=== PATIENT | female | born 1955 | race Two or more races ===

== ENCOUNTER 2016-10-14 17:57 | Inpatient (IN) | payer MEDICARE, OTHER ==
[~2016-10-14] VITALS: Ht 139.7 cm; Wt 55.8 kg
[2016-10-14 21:30] VITALS: BP 117/71
[2016-10-15] VITALS: BP 108/60
[2016-10-15] MEDS ORDERED: Norco 5mg/325mg tab ORAL PRN (00:30)
[2016-10-15] MEDS ORDERED: ABACAVIR300 MG ORAL (00:59)
[2016-10-15] MEDS ORDERED: JANUVIA50 MG ORAL (01:12)
[2016-10-15] MEDS ORDERED: COLACE100 MG ORAL (01:12)
[2016-10-15] MEDS ORDERED: FERROUS SULFAT325 MG ORAL (01:12)
[2016-10-15] MEDS ORDERED: LORAZEPAM2 MG/1 M4 ORAL (01:12)
[2016-10-15] MEDS ORDERED: CALCIUM + VITA1 EAC1 PO (01:12)
[2016-10-15] MEDS ORDERED: TIVICAY50 MG ORAL (01:12)
[2016-10-15] MEDS ORDERED: ZYPREXA2.5 MG ORAL (01:12)
[2016-10-15] MEDS ORDERED: LORAZEPAM2 MG ORAL (01:19)
[2016-10-15] MEDS ORDERED: LORazepam 0.5mg tab ORAL PRN (01:45)
[2016-10-15] MEDS: NS w/KCl 20mEq 1,000 ML IV SCH ×2 (02:14→16:29)
[2016-10-15 04:00] VITALS: BP 117/70
[2016-10-15] MEDS: Morphine Sulfate 2mg/ml Inj IVP PRN ×3 (05:11→19:06)
[2016-10-15] MEDS: NovoLOG Insulin Flexpen SUBQ SCH ×4 (06:25→22:24)
[2016-10-15 06:55] LABS: ALBUMIN/GLOBULIN RATIO 0.9 (1.0-2.7); CALCIUM 7.1 mg/dL (8.6-10.2); GLOMERULAR FILTRATION RATE 56.8 mL/min (>60); MAGNESIUM 1.3 mg/dL (1.7-2.5); MEAN CORPUSCULAR HEMOGLOBIN 31.6 PG (27.0-31.0); MEAN CORPUSCULAR HGB CONC 33.7 G/DL (32.0-36.0); MEAN CORPUSCULAR VOLUME 94 FL (80-99); PHOSPHORUS 1.4 mg/dL (2.5-4.8); PLATELET COUNT 68 K/UL (150-450); POTASSIUM 3.6 mEQ/L (3.4-4.9); RED BLOOD COUNT 3.25 M/UL (4.20-5.40); RED CELL DISTRIBUTION WIDTH 14.4 % (11.6-14.8); TOTAL PROTEIN 6.3 g/dL (6.6-8.7); WHITE BLOOD COUNT 4.5 K/UL (4.8-10.8)
[2016-10-15 07:32] LABS: BASOPHILS % (MANUAL) 1 % (0-2); EOSINOPHILS % (MANUAL) 4 % (0-3); LYMPHOCYTES % (MANUAL) 15 % (20-45); NEUTROPHILS % (MANUAL) 73 % (45-75); TOTAL CELLS COUNTED 100
[2016-10-15 07:33] LABS: ANISOCYTOSIS 1+; BAND NEUTROPHILS % (MANUAL) 0 % (0-8); PLATELET ESTIMATE DECREASED; PLATELET MORPHOLOGY NORMAL
[2016-10-15 07:34] VITALS: BP 127/79
[2016-10-15 07:34] LABS: HYPOCHROMASIA 1+
[2016-10-15] MEDS: Docusate 100mg cap ORAL SCH ×2 (08:14→17:54)
[2016-10-15] MEDS: metroNIDAZOLE 500mg 100 ML IVPB SCH ×3 (08:14→23:31)
[2016-10-15] MEDS ORDERED: Heparin 5000 units/ml inj SUBQ SCH (09:00)
[2016-10-15 11:35] VITALS: BP 131/77
--- NOTE | 2016-10-15 14:53 | Consultation ---
History of Present Illness General Date patient seen: Oct 15, 2016 Chief Complaint: abdominal pain/ nausea Reason for Consultation: inpatient management Present Illness HPI 61 year old female with hx of DM, HIV, presented to [facility] with CC of abdominal pain, A CT of abdomen showed that she has diverticulitis. She is transferred to [facility] for furhter work up. Her pain is controlled now. She has some nausea and c/o sore throat. Allergies: Coded Allergies: ASPIRIN (Unverified Allergy, Unknown, Rash, 10/14/16) PENICILLINS (Unverified Allergy, Unknown, Rash, 10/14/16) Medication History Scheduled Docusate Sodium* (Colace*), 100 MG ORAL TWICE A DAY, (Reported) Docusate Sodium* (Colace*), 100 MG ORAL TWICE A DAY, (Reported) Dolutegravir Sodium (Tivicay), 50 MG ORAL DAILY, (Reported) Ferrous Sulfate* (Ferrous Sulfate*), 325 MG ORAL DAILY, (Reported) Lorazepam* (Lorazepam*), 2 MG ORAL BEDTIME, (Reported) Olanzapine* (Zyprexa*), 2.5 MG ORAL BEDTIME, (Reported) Sitagliptin (Januvia), 50 MG ORAL DAILY, (Reported) Scheduled PRN Abacavir Sulfate* (Abacavir*), 300 MG ORAL TWICE A DAY PRN for HIV, (Reported) Miscellaneous Medications Calcium Carbonate/Vitamin D3 (Calcium + Vitamin D Tablet), 1 EACH PO, (Reported) Discontinued Medications Lorazepam (Lorazepam), 2 MG ORAL BEDTIME, (Reported) Discontinued Reason: Medication dose changed Patient History Healthcare decision maker N/A Resuscitation status Full Code Advanced Directive on File Past Medical/Surgical History Past Medical/Surgical History: (1) HIV disease (2) Diabetes Review of Systems All Other Systems: negative except mentioned in HPI Physical Exam General Appearance: WD/WN Lines, tubes and drains: peripheral HEENT: normocephalic, atraumatic Neck: non-tender, normal alignment Respiratory/Chest: chest wall non-tender, lungs clear Cardiovascular/Chest: normal peripheral pulses, normal rate Abdomen: normal bowel sounds, non tender Genitourinary/Rectal: normal genital exam Extremities: normal range of motion Last 24 Hour Vital Signs Date Time Temp Pulse Resp B/P Pulse Ox O2 Delivery O2 Flow Rate FiO2 10/15/16 11:35 98.4 84 15 131/77 100 Room Air 10/15/16 07:34 98.2 92 15 127/79 99 Room Air 10/15/16 04:00 97.7 99 20 117/70 96 Room Air 10/15/16 00:00 97.7 82 20 108/60 98 Room Air 10/14/16 21:30 98.1 92 20 117/71 99 Room Air Intake and Output 10/14/16 10/15/16 19:00 07:00 Intake Total 300 ml Balance 300 ml Intake IV Total 300 ml # Voids 5 # Bowel Movements 1 Laboratory Tests Test 10/15/16 05:55 White Blood Count 4.5 K/UL (4.8-10.8) L Red Blood Count 3.25 M/UL (4.20-5.40) L Hemoglobin 10.3 G/DL (12.0-16.0) L Hematocrit 30.5 % (37.0-47.0) L Mean Corpuscular Volume 94 FL (80-99) Mean Corpuscular Hemoglobin 31.6 PG (27.0-31.0) H Mean Corpuscular Hemoglobin Concent 33.7 G/DL (32.0-36.0) Red Cell Distribution Width 14.4 % (11.6-14.8) Platelet Count 68 K/UL (150-450) L Mean Platelet Volume 8.0 FL (6.5-10.1) Neutrophils (%) (Auto) % (45.0-75.0) Lymphocytes (%) (Auto) % (20.0-45.0) Monocytes (%) (Auto) % (1.0-10.0) Eosinophils (%) (Auto) % (0.0-3.0) Basophils (%) (Auto) % (0.0-2.0) Differential Total Cells Counted 100 Neutrophils % (Manual) 73 % (45-75) Lymphocytes % (Manual) 15 % (20-45) L Monocytes % (Manual) 7 % (1-10) Eosinophils % (Manual) 4 % (0-3) H Basophils % (Manual) 1 % (0-2) Band Neutrophils 0 % (0-8) Platelet Estimate Decreased L Platelet Morphology Normal Hypochromasia 1+ Poikilocytosis Anisocytosis 1+ Sodium Level 141 mEQ/L (135-145) Potassium Level 3.6 mEQ/L (3.4-4.9) Chloride Level 108 mEQ/L (98-107) H Carbon Dioxide Level 20 mEQ/L (20-30) Anion Gap 13 (5-15) Blood Urea Nitrogen 12 mg/dL (7-23) Creatinine 1.0 mg/dL (0.5-0.9) H Estimat Glomerular Filtration Rate 56.8 mL/min (>60) Glucose Level 136 mg/dL (74-106) H Calcium Level 7.1 mg/dL (8.6-10.2) L Phosphorus Level 1.4 mg/dL (2.5-4.8) L Magnesium Level 1.3 mg/dL (1.7-2.5) L Total Bilirubin 0.6 mg/dL (0.0-1.2) Aspartate Amino Transf (AST/SGOT) 33 U/L (5-40) Alanine Aminotransferase (ALT/SGPT) 18 U/L (3-33) Alkaline Phosphatase 159 U/L (35-104) H Total Protein 6.3 g/dL (6.6-8.7) L Albumin 3.0 g/dL (3.5-5.2) L Globulin 3.3 g/dL Albumin/Globulin Ratio 0.9 (1.0-2.7) L Height (Feet): 4 Height (Inches): 7.00 Weight (Pounds): 123 Medications Current Medications Medications (Trade) Dose Ordered Sig/Josie Route PRN Reason Start Time Stop Time Status Last Admin Dose Admin Acetaminophen 650 mg 650 mg Q6H PRN ORAL Mild Pain/Temp > 100.5 10/15/16 00:30 11/14/16 00:29 Acetaminophen/ Hydrocodone Bitart ([place] 5/325) 1 tab Q6H PRN ORAL For Pain 10/15/16 00:30 10/22/16 00:29 Cetylpyridinium Chloride (Cepacol) 1 lozenge Q4H PRN MATTEO sore throat 10/15/16 12:45 11/14/16 12:44 10/15/16 13:48 Ciprofloxacin (Cipro 400mg/ 200ml premix bag) 200 ml @ 200 mls/hr Q12HR IV 10/15/16 09:00 10/22/16 08:59 10/15/16 09:50 Dextrose (Dextrose 50%) STAT PRN IV Hypoglycemia 10/15/16 01:15 11/14/16 01:14 Docusate Sodium (Colace) 100 mg TWICE A DAY ORAL 10/15/16 09:00 11/14/16 08:59 10/15/16 08:14 Ferrous Sulfate (Feosol) 325 mg DAILY ORAL 10/15/16 09:00 11/14/16 08:59 10/15/16 08:14 Insulin Aspart (NovoLOG) BEFORE MEALS AND HS SUBQ 10/15/16 06:30 11/14/16 06:29 10/15/16 12:22 Lorazepam (Ativan) 2 mg BEDTIME PRN ORAL Insomnia 10/15/16 01:45 10/22/16 01:44 Metronidazole 100 ml @ 100 mls/hr Q8HR IVPB 10/15/16 09:00 10/22/16 08:59 10/15/16 13:47 Morphine Sulfate 2 mg 2 mg Q4H PRN IVP Severe Pain (Pain Scale 7-10) 10/15/16 00:30 10/22/16 00:29 10/15/16 09:51 Olanzapine (ZyPREXA) 2.5 mg BEDTIME ORAL 10/15/16 21:00 11/14/16 20:59 Ondansetron HCl (Zofran) 4 mg Q4H PRN IVP Nausea & Vomiting 10/15/16 00:30 11/14/16 00:29 10/15/16 10:36 Sodium Chloride (NS w/KCl 20mEq) 1,000 ml @ 75 mls/hr [id number] IV 10/15/16 02:00 11/14/16 01:59 10/15/16 02:14 Assessment/Plan Problem List: (1) Diverticulitis ICD Codes: K57.92 - Diverticulitis of intestine, part unspecified, without perforation or abscess without bleeding SNOMED: 598544823 (2) Diabetes ICD Codes: E11.9 - Type 2 diabetes mellitus without complications SNOMED: 24873199 (3) HIV disease ICD Codes: B20 - Human immunodeficiency virus [HIV] disease SNOMED: 37114377 Assessment/Plan IV fluids IV antbiotics clear liquid hepatitis serology because of the cirrhosis of the liver. JOHN TUCKER Oct 15, 2016 14:53
[2016-10-15 15:41] VITALS: BP 113/65
--- NOTE | 2016-10-15 16:53 | GI Initial Consult Note ---
Mathew,Nelly Dave N.P. 10/15/16 1653: History of Present Illness General Date patient seen: Oct 15, 2016 Time patient seen: 14:00 Referring physician: JOHN MALIN Reason for Consultation: DIVERTICULITIS Present Illness HPI 61 year old female with hx of DM, HIV, presented to [facility] with CC of abdominal pain, A CT of abdomen showed that she has diverticulitis. She is transferred to [facility] for further work up. Her pain is controlled now. She has some nausea and c/o sore throat. GI CONSULT. HPI as noted above. GI consulted for management of diverticulitis. Pt seen on floor, awake A&Ox4 NAD c/o of generalized abdominal pain with tenderness. She presents today with pancytopenia, elevated alkaline phosphatase, hypoalbuminemia and abnormal electrolyte levels. Her last colonoscopy was performed in [facility] approximately 2 years ago with unremarkable results. In addition the patient c/o of throat irritation. Home Meds Reported Medications Lorazepam* (LORAZEPAM*) 2 Mg Tablet, 2 MG ORAL BEDTIME for Insomnia, TAB 10/15/16 Sitagliptin (Januvia) 50 Mg Tablet, 50 MG ORAL DAILY for Hyperglycemia, TAB 10/15/16 Olanzapine* (ZYPREXA*) 2.5 Mg Tablet, 2.5 MG ORAL BEDTIME for depression, #30 TAB 0 Refills 10/15/16 Ferrous Sulfate* (FERROUS SULFATE*) 325 Mg Tablet, 325 MG ORAL DAILY for anemia , #30 TAB 0 Refills 10/15/16 Docusate Sodium* (COLACE*) 100 Mg Capsule, 100 MG ORAL TWICE A DAY for Constipation, CAP 10/15/16 Docusate Sodium* (COLACE*) 100 Mg Capsule, 100 MG ORAL TWICE A DAY, CAP 10/15/16 Calcium Carbonate/Vitamin D3 (CALCIUM + VITAMIN D TABLET) 1 Each Tablet, 1 EACH PO, TAB 10/15/16 Dolutegravir Sodium (Tivicay) 50 Mg Tablet, 50 MG ORAL DAILY for HIV, TAB 10/15/16 Abacavir Sulfate* (ABACAVIR*) 300 Mg Tablet, 300 MG ORAL TWICE A DAY Y for HIV, TAB 10/15/16 Discontinued Reported Medications Lorazepam (LORAZEPAM) 2 Mg/1 Ml Oral.conc, 2 MG ORAL BEDTIME for Insomnia, ML 10/15/16 Med list reviewed/reconciled: Yes Allergies: Coded Allergies: ASPIRIN (Unverified Allergy, Unknown, Rash, 10/14/16) PENICILLINS (Unverified Allergy, Unknown, Rash, 10/14/16) Patient History History Provided By: Patient, Medical Record [facility] Narrative Allergies: Coded Allergies: ASPIRIN (Unverified Allergy, Unknown, Rash, 10/14/16) PENICILLINS (Unverified Allergy, Unknown, Rash, 10/14/16) (1) HIV disease (2) Diabetes Review of Systems All Other Systems: limited Physical Exam Vital Signs Date Time Temp Pulse Resp B/P Pulse Ox O2 Delivery O2 Flow Rate FiO2 10/14/16 21:30 98.1 92 20 117/71 99 Room Air Sp02 EP Interpretation: reviewed Labs Laboratory Tests Test 10/15/16 05:55 White Blood Count 4.5 K/UL (4.8-10.8) L Red Blood Count 3.25 M/UL (4.20-5.40) L Hemoglobin 10.3 G/DL (12.0-16.0) L Hematocrit 30.5 % (37.0-47.0) L Mean Corpuscular Volume 94 FL (80-99) Mean Corpuscular Hemoglobin 31.6 PG (27.0-31.0) H Mean Corpuscular Hemoglobin Concent 33.7 G/DL (32.0-36.0) Red Cell Distribution Width 14.4 % (11.6-14.8) Platelet Count 68 K/UL (150-450) L Mean Platelet Volume 8.0 FL (6.5-10.1) Neutrophils (%) (Auto) % (45.0-75.0) Lymphocytes (%) (Auto) % (20.0-45.0) Monocytes (%) (Auto) % (1.0-10.0) Eosinophils (%) (Auto) % (0.0-3.0) Basophils (%) (Auto) % (0.0-2.0) Differential Total Cells Counted 100 Neutrophils % (Manual) 73 % (45-75) Lymphocytes % (Manual) 15 % (20-45) L Monocytes % (Manual) 7 % (1-10) Eosinophils % (Manual) 4 % (0-3) H Basophils % (Manual) 1 % (0-2) Band Neutrophils 0 % (0-8) Platelet Estimate Decreased L Platelet Morphology Normal Hypochromasia 1+ Poikilocytosis Anisocytosis 1+ Sodium Level 141 mEQ/L (135-145) Potassium Level 3.6 mEQ/L (3.4-4.9) Chloride Level 108 mEQ/L (98-107) H Carbon Dioxide Level 20 mEQ/L (20-30) Anion Gap 13 (5-15) Blood Urea Nitrogen 12 mg/dL (7-23) Creatinine 1.0 mg/dL (0.5-0.9) H Estimat Glomerular Filtration Rate 56.8 mL/min (>60) Glucose Level 136 mg/dL (74-106) H Calcium Level 7.1 mg/dL (8.6-10.2) L Phosphorus Level 1.4 mg/dL (2.5-4.8) L Magnesium Level 1.3 mg/dL (1.7-2.5) L Total Bilirubin 0.6 mg/dL (0.0-1.2) Aspartate Amino Transf (AST/SGOT) 33 U/L (5-40) Alanine Aminotransferase (ALT/SGPT) 18 U/L (3-33) Alkaline Phosphatase 159 U/L (35-104) H Total Protein 6.3 g/dL (6.6-8.7) L Albumin 3.0 g/dL (3.5-5.2) L Globulin 3.3 g/dL Albumin/Globulin Ratio 0.9 (1.0-2.7) L General Appearance: well appearing, no apparent distress, alert Head: normocephalic EENT: normal ENT inspection Neck: supple Respiratory: normal breath sounds, no respiratory distress Cardiovascular: normal rate Gastrointestinal: normal inspection, non tender, soft Rectal: deferred Genitourinary: no CVA tenderness Musculoskeletal: normal inspection, back normal Neurologic: normal inspection, alert, oriented x3, responsive Psychiatric: normal inspection, judgement/insight normal, memory normal Skin: normal inspection, normal color, no rash, warm/dry Lymphatic: normal inspection, no adenopathy Current Medications Current Medications Medications (Trade) Dose Ordered Sig/Josie Route PRN Reason Start Time Stop Time Status Last Admin Dose Admin Acetaminophen 650 mg 650 mg Q6H PRN ORAL Mild Pain/Temp > 100.5 10/15/16 00:30 11/14/16 00:29 Acetaminophen/ Hydrocodone Bitart ([place] 5/325) 1 tab Q6H PRN ORAL For Pain 10/15/16 00:30 10/22/16 00:29 Cetylpyridinium Chloride (Cepacol) 1 lozenge Q4H PRN MATTEO sore throat 10/15/16 12:45 11/14/16 12:44 10/15/16 13:48 Ciprofloxacin (Cipro 400mg/ 200ml premix bag) 200 ml @ 200 mls/hr Q12HR IV 10/15/16 09:00 10/22/16 08:59 10/15/16 09:50 Dextrose (Dextrose 50%) STAT PRN IV Hypoglycemia 10/15/16 01:15 11/14/16 01:14 Docusate Sodium (Colace) 100 mg TWICE A DAY ORAL 10/15/16 09:00 11/14/16 08:59 10/15/16 08:14 Ferrous Sulfate (Feosol) 325 mg DAILY ORAL 10/15/16 09:00 11/14/16 08:59 10/15/16 08:14 Insulin Aspart (NovoLOG) BEFORE MEALS AND HS SUBQ 10/15/16 06:30 11/14/16 06:29 10/15/16 12:22 Lorazepam (Ativan) 2 mg BEDTIME PRN ORAL Insomnia 10/15/16 01:45 10/22/16 01:44 Metronidazole 100 ml @ 100 mls/hr Q8HR IVPB 10/15/16 09:00 10/22/16 08:59 10/15/16 13:47 Morphine Sulfate 2 mg 2 mg Q4H PRN IVP Severe Pain (Pain Scale 7-10) 10/15/16 00:30 10/22/16 00:29 10/15/16 09:51 Olanzapine (ZyPREXA) 2.5 mg BEDTIME ORAL 10/15/16 21:00 11/14/16 20:59 Ondansetron HCl (Zofran) 4 mg Q4H PRN IVP Nausea & Vomiting 10/15/16 00:30 11/14/16 00:29 10/15/16 10:36 Sodium Chloride (NS w/KCl 20mEq) 1,000 ml @ 75 mls/hr [id number] IV 10/15/16 02:00 11/14/16 01:59 10/15/16 16:29 GI: Plan Problems: (1) Diverticulitis (2) HIV disease (3) Diabetes (4) Abdominal pain Plan IVF hydration + electrolyte replacement CLD for 1-3 days, adv as tolerated pain mgmt abx >> transition to PO for 10-14 days when discharged ppi Cepacol prn repeat imaging if necessary anemia work up OB stool r/o GI bleed pt will require outpatient colonoscopy 8 weeks after discharge date Discussed with Dr. Espinoza. Thank you for referring this patient, we will follow. SAWYER ESPINOZA 10/16/16 1006: History of Present Illness Present Illness Home Meds Reported Medications Lorazepam* (LORAZEPAM*) 2 Mg Tablet, 2 MG ORAL BEDTIME for Insomnia, TAB 10/15/16 Sitagliptin (Januvia) 50 Mg Tablet, 50 MG ORAL DAILY for Hyperglycemia, TAB 10/15/16 Olanzapine* (ZYPREXA*) 2.5 Mg Tablet, 2.5 MG ORAL BEDTIME for depression, #30 TAB 0 Refills 10/15/16 Ferrous Sulfate* (FERROUS SULFATE*) 325 Mg Tablet, 325 MG ORAL DAILY for anemia , #30 TAB 0 Refills 10/15/16 Docusate Sodium* (COLACE*) 100 Mg Capsule, 100 MG ORAL TWICE A DAY for Constipation, CAP 10/15/16 Docusate Sodium* (COLACE*) 100 Mg Capsule, 100 MG ORAL TWICE A DAY, CAP 10/15/16 Calcium Carbonate/Vitamin D3 (CALCIUM + VITAMIN D TABLET) 1 Each Tablet, 1 EACH PO, TAB 10/15/16 Dolutegravir Sodium (Tivicay) 50 Mg Tablet, 50 MG ORAL DAILY for HIV, TAB 10/15/16 Abacavir Sulfate* (ABACAVIR*) 300 Mg Tablet, 300 MG ORAL TWICE A DAY Y for HIV, TAB 10/15/16 Discontinued Reported Medications Lorazepam (LORAZEPAM) 2 Mg/1 Ml Oral.conc, 2 MG ORAL BEDTIME for Insomnia, ML 10/15/16 Allergies: Coded Allergies: ASPIRIN (Unverified Allergy, Unknown, Rash, 10/14/16) PENICILLINS (Unverified Allergy, Unknown, Rash, 10/14/16) GI: Plan Plan The patient was seen and examined at bedside and all new and available data was reviewed in the patients chart. I agree with the above findings, impression and plan. (Patient seen earlier today. Signature stamp does not reflect patient encounter time.). -Alix Moreno MDh Dave Blanton Oct 15, 2016 16:53 SAWYER ESPINOZA Oct 16, 2016 10:06
--- NOTE | 2016-10-15 18:57 | History & Physical ---
History and Physical History & Physicial Dictated for Int Med-Dr Egan no. [id number]. PHIL YI Oct 15, 2016 18:57
[2016-10-15 20:00] VITALS: BP 132/73
[2016-10-15] MEDS ORDERED: Sodium Phosphate 30 MM in NS 275 ML IVPB ONE (20:30)
[2016-10-15] MEDS: OLANZapine 2.5mg tab ORAL SCH (22:17)
--- NOTE | 2016-10-15 23:00 | History and Physical Report ---
DATE OF ADMISSION: 10/14/2016 CHIEF COMPLAINT: The patient is a 61-year-old female, who presents with chief complaint of epigastric pain. HISTORY OF PRESENT ILLNESS: Began on Friday10/13/2016. The patient began to experience epigastric pain. The patient had nausea without vomiting. The patient denies fevers or chills. The patient denies diarrhea or constipation. The patient initially presented to [facility]. A CT scan of the abdomen revealed diverticulitis. The patient is transferred to [facility] secondary to insurance purposes. The patient is admitted with diverticulitis and abdominal pain. PAST MEDICAL HISTORY: Significant for, 1. Human immunodeficiency virus, which was diagnosed in 2004. The patient states her T-cell count is 450 and her viral load is undetectable. 2. Diabetes, which was diagnosed 1 year ago. PAST SURGICAL HISTORY: The patient denies. CURRENT MEDICATIONS: 1. Abacavir 300 mg one tablet p.o. twice daily. 2. Calcium/vitamin-D one tablet p.o. daily. 3. Tivicay 50 mg one tablet p.o. daily. 4. Iron sulfate 325 mg one tablet p.o. daily. 5. Zyprexa 2.5 mg one tablet p.o. daily. 6. Januvia 50 mg one tablet p.o. daily. ALLERGIES: To penicillin and aspirin. SOCIAL HISTORY: The patient is single and is disabled. The patient denies tobacco use. The patient admits to rare alcohol use. REVIEW OF SYSTEMS: Constitutional: The patient denies weight loss or weight gain. The patient denies fevers or chills. HEENT: The patient denies ear or throat pain. Cardiovascular: The patient denies palpitations or chest pain. Chest: The patient denies wheeze or shortness of breath. Abdomen: The patient complains of epigastric pain. The patient complains of nausea. The patient denies vomiting, diarrhea, or constipation. Genitourinary: The patient denies dysuria or increased frequency of urination. Neuromuscular: The patient denies seizures or generalized weakness. PHYSICAL EXAMINATION: VITAL SIGNS: Temperature 98.1 degrees, respirations 20, pulse 92, and blood pressure 117/71. GENERAL: The patient is a well-developed, well-nourished, female, in no apparent distress. HEENT: Eyes, pupils are equal and responsive to light and accommodation. Extraocular movements are intact. NECK: Supple without lymphadenopathy. CHEST: Lungs are clear to auscultation bilaterally without wheezes or rales. CARDIOVASCULAR: Regular rhythm and rate. S1 and S2 are normal without murmurs, rubs, or gallops. ABDOMEN: Soft, nontender, and nondistended. Positive bowel sounds. No evidence of hepatosplenomegaly. Currently, no rebound or guarding noted. EXTREMITIES: Negative for clubbing, cyanosis, or edema. RECTAL/GENITAL: Refused. NEUROLOGIC: Cranial nerves II through XII are grossly intact without focal deficits. Motor strength is 5/5 bilaterally. Deep tendon reflexes 2+ plantar. LABORATORY AND DIAGNOSTIC STUDIES: WBC 8.5, hemoglobin 12.6, hematocrit 36.8, and platelets 108,000. Sodium 133, potassium 3.7, chloride 101, CO2 17, BUN 22 and creatinine 1.13. Glucose elevated at 340. CT scan of the abdomen revealed diverticulitis. ASSESSMENT: This is a 61-year-old female, 1. Epigastric pain. 2. Nausea. 3. Diverticulitis. 4. Diabetes type 2. 5. Human immunodeficiency virus. TREATMENT: 1. Epigastric pain/nausea. A Gastroenterology consultation was obtained with Dr. Tony Sunshine. The patient is currently tolerating a clear liquid diet. We will advance diet as tolerated. 2. Diverticulitis. The patient has been started empirically on intravenous ciprofloxacin and Flagyl. As above, a Gastroenterology consultation was obtained with Dr. Tony Sunshine. We will follow recommendation of Dr. Sunshine. 3. Diabetes type 2. Continue Januvia as above. The patient has been placed on a NovoLog sliding scale. 4. Human immunodeficiency virus. The patient will continue HAART medications as above. Dveon De Souza M.D. DR: URIEL JOB#: [id number] CC:
[2016-10-16] VITALS (7 sets, daily range): BP systolic 132–147; BP diastolic 69–84
[2016-10-16] MEDS: NS w/KCl 20mEq 1,000 ML IV SCH ×2 (04:42→17:13)
[2016-10-16] MEDS: metroNIDAZOLE 500mg 100 ML IVPB SCH ×3 (05:16→22:55)
[2016-10-16] MEDS: NovoLOG Insulin Flexpen SUBQ SCH ×4 (06:07→20:50)
[2016-10-16 06:40] LABS: MEAN CORPUSCULAR HEMOGLOBIN 31.8 PG (27.0-31.0); MEAN CORPUSCULAR HGB CONC 33.9 G/DL (32.0-36.0); MEAN CORPUSCULAR VOLUME 94 FL (80-99); MEAN PLATELET VOLUME 8.8 FL (6.5-10.1); PLATELET COUNT 62 K/UL (150-450); RED BLOOD COUNT 3.22 M/UL (4.20-5.40); RED CELL DISTRIBUTION WIDTH 14.1 % (11.6-14.8); WHITE BLOOD COUNT 3.5 K/UL (4.8-10.8)
[2016-10-16 06:45] LABS: INR 1.1 (0.9-1.1); PROTHROMBIN TIME 11.5 SEC (9.30-11.50)
[2016-10-16 06:53] LABS: ALBUMIN/GLOBULIN RATIO 0.8 (1.0-2.7); CALCIUM 6.9 mg/dL (8.6-10.2); GLOMERULAR FILTRATION RATE 56.8 mL/min (>60); POTASSIUM 3.5 mEQ/L (3.4-4.9); TOTAL PROTEIN 6.1 g/dL (6.6-8.7)
[2016-10-16 07:07] LABS: MAGNESIUM 2.6 mg/dL (1.7-2.5); PHOSPHORUS 3.4 mg/dL (2.5-4.8)
[2016-10-16] MEDS: Docusate 100mg cap ORAL SCH (08:22)
[2016-10-16] MEDS: Morphine Sulfate 2mg/ml Inj IVP PRN ×3 (08:22→20:45)
[2016-10-16 08:50] LABS: ANISOCYTOSIS 1+; BAND NEUTROPHILS % (MANUAL) 0 % (0-8); BASOPHILS % (MANUAL) 0 % (0-2); EOSINOPHILS % (MANUAL) 8 % (0-3); HYPOCHROMASIA 1+; LYMPHOCYTES % (MANUAL) 29 % (20-45); NEUTROPHILS % (MANUAL) 55 % (45-75); PLATELET ESTIMATE DECREASED; PLATELET MORPHOLOGY NORMAL; TOTAL CELLS COUNTED 100
[2016-10-16 08:52] LABS: ERYTHROCYTE SEDIMENTATION RATE 73 MM/HR (0-30); PATH BLOOD SMEAR/OMC SENT TO PATHOLOGIST
[2016-10-16 10:05] LABS: RETICULOCYTE COUNT 1.6 % (0.0-2.0)
--- NOTE | 2016-10-16 10:40 | Internal Med Progress Note ---
Subjective Date of Service: Oct 16, 2016 Physician Name Yi,Phil Attending Physician Nelson Zuniga MD Current Medications Medications (Trade) Dose Ordered Sig/Josie Route PRN Reason Start Time Stop Time Status Last Admin Dose Admin Acetaminophen 650 mg 650 mg Q6H PRN ORAL Mild Pain/Temp > 100.5 10/15/16 00:30 11/14/16 00:29 Acetaminophen/ Hydrocodone Bitart ([place] 5/325) 1 tab Q6H PRN ORAL For Pain 10/15/16 00:30 10/22/16 00:29 Cetylpyridinium Chloride (Cepacol) 1 lozenge Q4H PRN MATTEO sore throat 10/15/16 12:45 11/14/16 12:44 10/16/16 05:48 Ciprofloxacin (Cipro 400mg/ 200ml premix bag) 200 ml @ 200 mls/hr Q12HR IV 10/15/16 09:00 10/22/16 08:59 10/16/16 08:22 Dextrose (Dextrose 50%) STAT PRN IV Hypoglycemia 10/15/16 01:15 11/14/16 01:14 Docusate Sodium (Colace) 100 mg TWICE A DAY ORAL 10/15/16 09:00 11/14/16 08:59 10/15/16 17:54 Insulin Aspart (NovoLOG) BEFORE MEALS AND HS SUBQ 10/15/16 06:30 11/14/16 06:29 10/16/16 06:07 Lorazepam (Ativan) 2 mg BEDTIME PRN ORAL Insomnia 10/15/16 01:45 10/22/16 01:44 10/15/16 22:27 Metronidazole 100 ml @ 100 mls/hr Q8HR IVPB 10/15/16 09:00 10/22/16 08:59 10/16/16 05:16 Morphine Sulfate 2 mg 2 mg Q4H PRN IVP Severe Pain (Pain Scale 7-10) 10/15/16 00:30 10/22/16 00:29 10/16/16 08:22 Olanzapine (ZyPREXA) 2.5 mg BEDTIME ORAL 10/15/16 21:00 11/14/16 20:59 10/15/16 22:17 Ondansetron HCl (Zofran) 4 mg Q4H PRN IVP Nausea & Vomiting 10/15/16 00:30 7/13/17 00:29 10/16/16 09:41 Sodium Chloride (NS w/KCl 20mEq) 1,000 ml @ 75 mls/hr [id number] IV 10/15/16 02:00 11/14/16 01:59 10/16/16 04:42 Allergies: Coded Allergies: ASPIRIN (Unverified Allergy, Unknown, Rash, 10/14/16) PENICILLINS (Unverified Allergy, Unknown, Rash, 10/14/16) ROS Limited/Unobtainable: No Constitutional: Reports: no symptoms HEENT: Reports: no symptoms Cardiovascular: Reports: no symptoms Respiratory: Reports: no symptoms Gastrointestinal/Abdominal: Reports: abdominal pain, nausea, poor appetite Genitourinary: Reports: no symptoms Neurologic/Psychiatric: Reports: no symptoms Subjective 61 YO F admitted with epigastric pain. Now diverticulitis. Await CT abdomen and pelvis. Cover for Int Rudy-Dr Zuniga. C/O abdominal pain 12/12 Objective Last Vital Signs Date Time Temp Pulse Resp B/P Pulse Ox O2 Delivery O2 Flow Rate FiO2 10/16/16 09:40 97.7 10/16/16 04:00 65 20 132/72 97 Room Air General Appearance: WD/WN, moderate distress EENT: PERRL/EOMI, normal ENT inspection, TMs normal Neck: non-tender, normal alignment, supple Cardiovascular: normal peripheral pulses, normal rate, regular rhythm, no gallop/murmur, no JVD Respiratory/Chest: chest wall non-tender, lungs clear, normal breath sounds, no respiratory distress, respiratory distress Abdomen: no organomegaly, no mass, decreased bowel sounds, distended, tender Extremities: normal range of motion Neurologic: ventilating engineer II-XII grossly normal, no motor/sensory deficits Skin: normal pigmentation, warm/dry Laboratory Tests Test 10/16/16 05:35 White Blood Count 3.5 K/UL (4.8-10.8) L Red Blood Count 3.22 M/UL (4.20-5.40) L Hemoglobin 10.3 G/DL (12.0-16.0) L Hematocrit 30.2 % (37.0-47.0) L Mean Corpuscular Volume 94 FL (80-99) Mean Corpuscular Hemoglobin 31.8 PG (27.0-31.0) H Mean Corpuscular Hemoglobin Concent 33.9 G/DL (32.0-36.0) Red Cell Distribution Width 14.1 % (11.6-14.8) Platelet Count 62 K/UL (150-450) L Mean Platelet Volume 8.8 FL (6.5-10.1) Neutrophils (%) (Auto) % (45.0-75.0) Lymphocytes (%) (Auto) % (20.0-45.0) Monocytes (%) (Auto) % (1.0-10.0) Eosinophils (%) (Auto) % (0.0-3.0) Basophils (%) (Auto) % (0.0-2.0) Differential Total Cells Counted 100 Neutrophils % (Manual) 55 % (45-75) Lymphocytes % (Manual) 29 % (20-45) Monocytes % (Manual) 8 % (1-10) Eosinophils % (Manual) 8 % (0-3) H Basophils % (Manual) 0 % (0-2) Band Neutrophils 0 % (0-8) Platelet Estimate Decreased L Platelet Morphology Normal Hypochromasia 1+ Anisocytosis 1+ Erythrocyte Sedimentation Rate 73 MM/HR (0-30) H Reticulocyte Count 1.6 % (0.0-2.0) Prothrombin Time 11.5 SEC (9.30-11.50) Prothromb Time International Ratio 1.1 (0.9-1.1) Activated Partial Thromboplast Time 28 SEC (23-33) Sodium Level 142 mEQ/L (135-145) Potassium Level 3.5 mEQ/L (3.4-4.9) Chloride Level 107 mEQ/L (98-107) Carbon Dioxide Level 20 mEQ/L (20-30) Anion Gap 15 (5-15) Blood Urea Nitrogen 6 mg/dL (7-23) L Creatinine 1.0 mg/dL (0.5-0.9) H Estimat Glomerular Filtration Rate 56.8 mL/min (>60) Glucose Level 146 mg/dL (74-106) H Calcium Level 6.9 mg/dL (8.6-10.2) L Phosphorus Level 3.4 mg/dL (2.5-4.8) Magnesium Level 2.6 mg/dL (1.7-2.5) H Iron Level 115 ug/dL (37-145) Total Iron Binding Capacity 182 ug/dL (250-400) L Percent Iron Saturation 63 % (15-50) H Unsaturated Iron Binding 67 ug/dL (112-346) L Total Bilirubin 0.6 mg/dL (0.0-1.2) Aspartate Amino Transf (AST/SGOT) 31 U/L (5-40) Alanine Aminotransferase (ALT/SGPT) 17 U/L (3-33) Alkaline Phosphatase 154 U/L (35-104) H Lactate Dehydrogenase Pending Total Protein 6.1 g/dL (6.6-8.7) L Albumin 2.8 g/dL (3.5-5.2) L Globulin 3.3 g/dL Albumin/Globulin Ratio 0.8 (1.0-2.7) L Carcinoembryonic Antigen 2.6 ng/mL Vitamin B12 Level 514 pg/mL (211-946) Folate Pending Intake and Output 10/15/16 10/16/16 19:00 07:00 Intake Total 2750 ml 737.5 ml Output Total 1500 ml 600 ml Balance 1250 ml 137.5 ml Intake Oral 1800 ml IV Total 950 ml 737.5 ml Output Urine Total 1500 ml 600 ml # Voids 2 Assessment/Plan Problem List: (1) Epigastric abdominal pain Assessment & Plan: Cont Morphine prn (2) HIV disease Assessment & Plan: Cont HAART (3) Diverticulitis Assessment & Plan: Await CT abdomen/pelvis. See GI consult. Downgrade diet to full liquid. Cont IV cipro and flagyl. (4) Diabetes mellitus, type II Assessment & Plan: Cont novolog sliding scale. Status: not improved PHIL YI Oct 16, 2016 10:40
--- NOTE | 2016-10-16 11:53 | GI Progress Note ---
Assessment/Plan Problems: (1) Diverticulitis ICD Codes: K57.92 - Diverticulitis of intestine, part unspecified, without perforation or abscess without bleeding SNOMED: 234034656 (2) Diabetes ICD Codes: E11.9 - Type 2 diabetes mellitus without complications SNOMED: 10289616 (3) Abdominal pain ICD Codes: R10.9 - Unspecified abdominal pain SNOMED: 90429106 (4) Epigastric abdominal pain ICD Codes: R10.13 - Epigastric pain SNOMED: 68865098 (5) Diabetes mellitus, type II ICD Codes: E11.9 - Type 2 diabetes mellitus without complications SNOMED: 69961082 Status: unchanged Status Narrative Discussed with Dr. Sunshine. Assessment/Plan ordered APCT IVF hydration + electrolyte replacement dc'd FeSO4 FLD, adv as tolerated pain mgmt abx >> transition to PO for 10-14 days when discharged ppi Cepacol prn OB stool r/o GI bleed pt will require outpatient colonoscopy 8 weeks after discharge date Subjective Subjective had soft diet this morning 8/10 abdominal pain abdominal distention Objective Last 24 Hour Vital Signs Date Time Temp Pulse Resp B/P Pulse Ox O2 Delivery O2 Flow Rate FiO2 10/16/16 09:40 97.7 10/16/16 08:00 97.9 72 20 135/70 98 Room Air 10/16/16 04:00 97.7 65 20 132/72 97 Room Air 10/16/16 00:00 98.2 77 20 137/69 97 Room Air 10/15/16 20:00 97.9 86 20 132/73 98 Room Air 10/15/16 15:41 98.1 89 16 113/65 98 Room Air Intake and Output 10/15/16 10/16/16 19:00 07:00 Intake Total 2750 ml 737.5 ml Output Total 1500 ml 600 ml Balance 1250 ml 137.5 ml Intake Oral 1800 ml IV Total 950 ml 737.5 ml Output Urine Total 1500 ml 600 ml # Voids 2 Laboratory Tests Test 10/16/16 05:35 White Blood Count 3.5 K/UL (4.8-10.8) L Red Blood Count 3.22 M/UL (4.20-5.40) L Hemoglobin 10.3 G/DL (12.0-16.0) L Hematocrit 30.2 % (37.0-47.0) L Mean Corpuscular Volume 94 FL (80-99) Mean Corpuscular Hemoglobin 31.8 PG (27.0-31.0) H Mean Corpuscular Hemoglobin Concent 33.9 G/DL (32.0-36.0) Red Cell Distribution Width 14.1 % (11.6-14.8) Platelet Count 62 K/UL (150-450) L Mean Platelet Volume 8.8 FL (6.5-10.1) Neutrophils (%) (Auto) % (45.0-75.0) Lymphocytes (%) (Auto) % (20.0-45.0) Monocytes (%) (Auto) % (1.0-10.0) Eosinophils (%) (Auto) % (0.0-3.0) Basophils (%) (Auto) % (0.0-2.0) Differential Total Cells Counted 100 Neutrophils % (Manual) 55 % (45-75) Lymphocytes % (Manual) 29 % (20-45) Monocytes % (Manual) 8 % (1-10) Eosinophils % (Manual) 8 % (0-3) H Basophils % (Manual) 0 % (0-2) Band Neutrophils 0 % (0-8) Platelet Estimate Decreased L Platelet Morphology Normal Hypochromasia 1+ Anisocytosis 1+ Erythrocyte Sedimentation Rate 73 MM/HR (0-30) H Reticulocyte Count 1.6 % (0.0-2.0) Prothrombin Time 11.5 SEC (9.30-11.50) Prothromb Time International Ratio 1.1 (0.9-1.1) Activated Partial Thromboplast Time 28 SEC (23-33) Sodium Level 142 mEQ/L (135-145) Potassium Level 3.5 mEQ/L (3.4-4.9) Chloride Level 107 mEQ/L (98-107) Carbon Dioxide Level 20 mEQ/L (20-30) Anion Gap 15 (5-15) Blood Urea Nitrogen 6 mg/dL (7-23) L Creatinine 1.0 mg/dL (0.5-0.9) H Estimat Glomerular Filtration Rate 56.8 mL/min (>60) Glucose Level 146 mg/dL (74-106) H Calcium Level 6.9 mg/dL (8.6-10.2) L Phosphorus Level 3.4 mg/dL (2.5-4.8) Magnesium Level 2.6 mg/dL (1.7-2.5) H Iron Level 115 ug/dL (37-145) Total Iron Binding Capacity 182 ug/dL (250-400) L Percent Iron Saturation 63 % (15-50) H Unsaturated Iron Binding 67 ug/dL (112-346) L Total Bilirubin 0.6 mg/dL (0.0-1.2) Aspartate Amino Transf (AST/SGOT) 31 U/L (5-40) Alanine Aminotransferase (ALT/SGPT) 17 U/L (3-33) Alkaline Phosphatase 154 U/L (35-104) H Lactate Dehydrogenase Pending Total Protein 6.1 g/dL (6.6-8.7) L Albumin 2.8 g/dL (3.5-5.2) L Globulin 3.3 g/dL Albumin/Globulin Ratio 0.8 (1.0-2.7) L Carcinoembryonic Antigen 2.6 ng/mL Vitamin B12 Level 514 pg/mL (211-946) Folate Pending Height (Feet): 4 Height (Inches): 7.00 Weight (Pounds): 123 General Appearance: no apparent distress, alert Cardiovascular: normal rate Respiratory/Chest: lungs clear, normal breath sounds, no respiratory distress Abdominal Exam: normal bowel sounds, non tender, soft Extremities: normal range of motion Nelly Mathew N.P. Oct 16, 2016 11:53
--- NOTE | 2016-10-16 15:06 | Diagnostic Imaging Report ---
Clinical Indication: 61-year-old female with chief complaint of epigastric pain x4 days Technique: Patient given oral contrast. IV administration nonionic contrast. Venous phase spiral acquisition obtained through the abdomen and pelvis. Multiplanar reconstructions were generated. Total dose length product 746 mGycm. CTDIvol(s) 16 mGy. Dose reduction achieved using automated exposure control Comparison: None Findings: There is colonic diverticulosis. There is wall thickening of the proximal sigmoid. There is inflammation of the perisigmoid fat, as well as a small amount of fluid seen tracking within the adjacent fascial planes. There may be some adjacent free fluid, as well. The appendix is normal. There is suggestion of wall thickening of the cecum and proximal ascending colon. No small bowel distention. No small bowel wall thickening. No free intraperitoneal air. Distal esophagus, stomach, duodenum are unremarkable. Some surgical clips are seen adjacent to the proximal sigmoid colon. The liver is diffusely hypoattenuating, consistent with fatty change. There is suggestion of mild hepatic surface nodularity which could indicate cirrhotic change. No focal abnormality. Gallbladder is surgically absent. Bile ducts are nondilated. The pancreas, spleen, adrenals, kidneys are unremarkable. The uterus demonstrates multiple fibroids, including a large 5.3 cm exophytic subserosal fibroid. The bladder is nondistended. There is equivocal mild bladder wall thickening. The included lung bases demonstrate minimal atelectatic changes, are otherwise clear. The bones are unremarkable. Impression: Colonic diverticulosis. Sigmoid wall thickening. In view of the presence of a small amount of adjacent fluid and slight infiltration of the perisigmoid fat, findings most likely represent acute diverticulitis. However, given the relatively long segment of abnormal sigmoid, the relative paucity of surrounding abnormality, and presence of abnormal wall thickening of the cecum, findings may also represent segmental colitis. Correlation with clinical findings is recommended Trace free pelvic fluid, presumably related to the above As mentioned earlier, there is focal wall thickening of the cecum and proximal ascending colon, suspicious for colitis Fatty liver. Questionable hepatic surface nodularity, could indicate early cirrhotic change Evidence of prior cholecystectomy Enlarged fibroid uterus Equivocal mild bladder wall thickening, likely an artifact of under distention The CT scanner at [facility] is accredited by the [employer] [place] [employer] and the scans are performed using protocols designed to limit radiation exposure to as low as reasonably achievable to attain images of sufficient resolution adequate for diagnostic evaluation.
--- NOTE | 2016-10-16 22:16 | Pulmonology Progress Note ---
Assessment/Plan Problems: (1) Diverticulitis (2) Diabetes (3) HIV disease Subjective Allergies: Coded Allergies: ASPIRIN (Unverified Allergy, Unknown, Rash, 10/14/16) PENICILLINS (Unverified Allergy, Unknown, Rash, 10/14/16) Objective Last 24 Hour Vital Signs Date Time Temp Pulse Resp B/P Pulse Ox O2 Delivery O2 Flow Rate FiO2 10/16/16 19:52 97.7 67 18 147/84 99 Room Air 10/16/16 16:28 98.2 10/16/16 16:00 98.4 71 18 132/69 98 Room Air 10/16/16 12:00 98.2 76 18 142/75 99 Room Air 10/16/16 08:00 97.9 72 20 135/70 98 Room Air 10/16/16 04:00 97.7 65 20 132/72 97 Room Air 10/16/16 00:00 98.2 77 20 137/69 97 Room Air Intake and Output 10/15/16 10/16/16 19:00 07:00 Intake Total 2750 ml 737.5 ml Output Total 1500 ml 600 ml Balance 1250 ml 137.5 ml Intake Oral 1800 ml IV Total 950 ml 737.5 ml Output Urine Total 1500 ml 600 ml # Voids 2 Laboratory Tests 10/16/16 05:35: White Blood Count 3.5L, Red Blood Count 3.22L, Hemoglobin 10.3L, Hematocrit 30.2L, Mean Corpuscular Volume 94, Mean Corpuscular Hemoglobin 31.8H, Mean Corpuscular Hemoglobin Concent 33.9, Red Cell Distribution Width 14.1, Platelet Count 62L, Mean Platelet Volume 8.8, Neutrophils (%) (Auto) , Lymphocytes (%) ( Auto) , Monocytes (%) (Auto) , Eosinophils (%) (Auto) , Basophils (%) (Auto) , Differential Total Cells Counted 100, Neutrophils % (Manual) 55, Lymphocytes % ( Manual) 29, Monocytes % (Manual) 8, Eosinophils % (Manual) 8H, Basophils % ( Manual) 0, Band Neutrophils 0, Platelet Estimate DecreasedL, Platelet Morphology Normal, Hypochromasia 1+, Anisocytosis 1+, Erythrocyte Sedimentation Rate 73H, Reticulocyte Count 1.6, Prothrombin Time 11.5, Prothromb Time International Ratio 1.1, Activated Partial Thromboplast Time 28, Sodium Level 142, Potassium Level 3.5, Chloride Level 107, Carbon Dioxide Level 20, Anion Gap 15, Blood Urea Nitrogen 6L, Creatinine 1.0H, Estimat Glomerular Filtration Rate 56.8, Glucose Level 146H, Calcium Level 6.9L, Phosphorus Level 3.4, Magnesium Level 2.6H, Iron Level 115, Total Iron Binding Capacity 182L, Percent Iron Saturation 63H, Unsaturated Iron Binding 67L, Total Bilirubin 0.6, Aspartate Amino Transf (AST/SGOT) 31, Alanine Aminotransferase (ALT/SGPT) 17, Alkaline Phosphatase 154H, Lactate Dehydrogenase [Pending], Total Protein 6.1L, Albumin 2.8L, Globulin 3.3, Albumin/Globulin Ratio 0.8L, Carcinoembryonic Antigen 2.6, Vitamin B12 Level 514, Folate [Pending] Current Medications Medications (Trade) Dose Ordered Sig/Josie Route PRN Reason Start Time Stop Time Status Last Admin Dose Admin Abacavir Sulfate (Ziagen) 300 mg TWICE A DAY ORAL 10/16/16 20:00 11/15/16 19:59 Acetaminophen 650 mg 650 mg Q6H PRN ORAL Mild Pain/Temp > 100.5 10/15/16 00:30 11/14/16 00:29 Acetaminophen/ Hydrocodone Bitart ([place] 5/325) 1 tab Q6H PRN ORAL For Pain 10/15/16 00:30 10/22/16 00:29 Cetylpyridinium Chloride (Cepacol) 1 lozenge Q4H PRN MATTEO sore throat 10/15/16 12:45 11/14/16 12:44 10/16/16 16:24 Ciprofloxacin (Cipro 400mg/ 200ml premix bag) 200 ml @ 200 mls/hr Q12HR IV 10/15/16 09:00 10/22/16 08:59 10/16/16 20:45 Dextrose (Dextrose 50%) STAT PRN IV Hypoglycemia 10/15/16 01:15 11/14/16 01:14 Dolutegravir Sodium (Tivicay) 50 mg DAILY ORAL 10/17/16 09:00 11/16/16 08:59 Insulin Aspart (NovoLOG) BEFORE MEALS AND HS SUBQ 10/15/16 06:30 11/14/16 06:29 10/16/16 20:50 Lorazepam (Ativan) 1 mg HSPRN PRN ORAL Insomnia 10/16/16 18:45 10/23/16 18:44 Metronidazole 100 ml @ 100 mls/hr Q8HR IVPB 10/15/16 09:00 10/22/16 08:59 10/16/16 14:18 Morphine Sulfate 2 mg 2 mg Q4H PRN IVP Severe Pain (Pain Scale 7-10) 10/15/16 00:30 10/22/16 00:29 10/16/16 20:45 Olanzapine (ZyPREXA) 2.5 mg BEDTIME ORAL 10/15/16 21:00 11/14/16 20:59 10/15/16 22:17 Ondansetron HCl (Zofran) 4 mg Q4H PRN IVP Nausea & Vomiting 10/15/16 00:30 11/14/16 00:29 10/16/16 20:42 Sodium Chloride (NS w/KCl 20mEq) 1,000 ml @ 75 mls/hr [id number] IV 10/15/16 02:00 11/14/16 01:59 10/16/16 17:13 JOHN TUCKER Oct 16, 2016 22:16
[2016-10-16] MEDS: LORazepam 0.5mg tab ORAL PRN (22:55)
[2016-10-16] MEDS: OLANZapine 2.5mg tab ORAL SCH (22:55)
[2016-10-17 04:00] VITALS: BP 111/64
[2016-10-17] MEDS: metroNIDAZOLE 500mg 100 ML IVPB SCH ×2 (06:00→13:47)
[2016-10-17] MEDS: NovoLOG Insulin Flexpen SUBQ SCH ×4 (06:05→21:29)
[2016-10-17 06:46] LABS: ALBUMIN/GLOBULIN RATIO 0.8 (1.0-2.7); CALCIUM 7.4 mg/dL (8.6-10.2); GLOMERULAR FILTRATION RATE 56.8 mL/min (>60); POTASSIUM 3.5 mEQ/L (3.4-4.9); TOTAL PROTEIN 6.2 g/dL (6.6-8.7)
[2016-10-17 07:13] LABS: MEAN CORPUSCULAR HEMOGLOBIN 33.3 PG (27.0-31.0); MEAN CORPUSCULAR HGB CONC 34.9 G/DL (32.0-36.0); MEAN CORPUSCULAR VOLUME 95 FL (80-99); MEAN PLATELET VOLUME 6.9 FL (6.5-10.1); PLATELET COUNT 60 K/UL (150-450); RED CELL DISTRIBUTION WIDTH 14.3 % (11.6-14.8); WHITE BLOOD COUNT 3.9 K/UL (4.8-10.8)
[2016-10-17] MEDS: NS w/KCl 20mEq 1,000 ML IV SCH ×2 (07:20→22:23)
[2016-10-17 08:00] VITALS: BP 133/75
[2016-10-17] MEDS: Dolutegravir Sodium 50mg tab ORAL SCH (08:35)
[2016-10-17] MEDS: Morphine Sulfate 2mg/ml Inj IVP PRN (08:36)
[2016-10-17 10:21] LABS: ANISOCYTOSIS 1+; BAND NEUTROPHILS % (MANUAL) 0 % (0-8); BASOPHILS % (MANUAL) 0 % (0-2); EOSINOPHILS % (MANUAL) 3 % (0-3); HYPOCHROMASIA 1+; LYMPHOCYTES % (MANUAL) 29 % (20-45); NEUTROPHILS % (MANUAL) 61 % (45-75); PLATELET ESTIMATE DECREASED; PLATELET MORPHOLOGY NORMAL; TOTAL CELLS COUNTED 100
--- NOTE | 2016-10-17 11:09 | GI Progress Note ---
Assessment/Plan Problems: (1) Diverticulitis ICD Codes: K57.92 - Diverticulitis of intestine, part unspecified, without perforation or abscess without bleeding SNOMED: 736534952 (2) Diabetes ICD Codes: E11.9 - Type 2 diabetes mellitus without complications SNOMED: 96090513 (3) Abdominal pain ICD Codes: R10.9 - Unspecified abdominal pain SNOMED: 44853763 (4) Epigastric abdominal pain ICD Codes: R10.13 - Epigastric pain SNOMED: 57157721 (5) Diabetes mellitus, type II ICD Codes: E11.9 - Type 2 diabetes mellitus without complications SNOMED: 51755372 Status: stable Status Narrative Discussed with Dr. Sunshine. Assessment/Plan APCT reviewed, see full report. IVF hydration + electrolyte replacement dc iron soft diet today pain mgmt abx >> transition to PO for 10-14 days when discharged ppi Cepacol prn OB stool r/o GI bleed pt will require outpatient colonoscopy 8 weeks after discharge date Subjective Subjective FLD, tolerating 8/10 abdominal pain abdominal distention Objective Last 24 Hour Vital Signs Date Time Temp Pulse Resp B/P Pulse Ox O2 Delivery O2 Flow Rate FiO2 10/17/16 08:00 98.1 74 18 133/75 99 Room Air 10/17/16 04:00 97.9 76 18 111/64 98 Room Air 10/16/16 23:59 97.7 68 18 133/72 96 Room Air 10/16/16 19:52 97.7 67 18 147/84 99 Room Air 10/16/16 16:28 98.2 10/16/16 16:00 98.4 71 18 132/69 98 Room Air 10/16/16 12:00 98.2 76 18 142/75 99 Room Air Intake and Output 10/16/16 10/17/16 19:00 07:00 Intake Total 2575 ml 1250 ml Balance 2575 ml 1250 ml Intake Oral 1500 ml 250 ml IV Total 1075 ml 1000 ml # Voids 3 2 # Bowel Movements 3 Laboratory Tests Test 10/17/16 04:50 White Blood Count 3.9 K/UL (4.8-10.8) L Red Blood Count 3.00 M/UL (4.20-5.40) L Hemoglobin 10.0 G/DL (12.0-16.0) L Hematocrit 28.6 % (37.0-47.0) L Mean Corpuscular Volume 95 FL (80-99) Mean Corpuscular Hemoglobin 33.3 PG (27.0-31.0) H Mean Corpuscular Hemoglobin Concent 34.9 G/DL (32.0-36.0) Red Cell Distribution Width 14.3 % (11.6-14.8) Platelet Count 60 K/UL (150-450) L Mean Platelet Volume 6.9 FL (6.5-10.1) Neutrophils (%) (Auto) % (45.0-75.0) Lymphocytes (%) (Auto) % (20.0-45.0) Monocytes (%) (Auto) % (1.0-10.0) Eosinophils (%) (Auto) % (0.0-3.0) Basophils (%) (Auto) % (0.0-2.0) Differential Total Cells Counted 100 Neutrophils % (Manual) 61 % (45-75) Lymphocytes % (Manual) 29 % (20-45) Monocytes % (Manual) 7 % (1-10) Eosinophils % (Manual) 3 % (0-3) Basophils % (Manual) 0 % (0-2) Band Neutrophils 0 % (0-8) Platelet Estimate Decreased L Platelet Morphology Normal Hypochromasia 1+ Anisocytosis 1+ Sodium Level 140 mEQ/L (135-145) Potassium Level 3.5 mEQ/L (3.4-4.9) Chloride Level 107 mEQ/L (98-107) Carbon Dioxide Level 19 mEQ/L (20-30) L Anion Gap 14 (5-15) Blood Urea Nitrogen 4 mg/dL (7-23) L Creatinine 1.0 mg/dL (0.5-0.9) H Estimat Glomerular Filtration Rate 56.8 mL/min (>60) Glucose Level 177 mg/dL (74-106) H Calcium Level 7.4 mg/dL (8.6-10.2) L Total Bilirubin 0.5 mg/dL (0.0-1.2) Aspartate Amino Transf (AST/SGOT) 42 U/L (5-40) H Alanine Aminotransferase (ALT/SGPT) 21 U/L (3-33) Alkaline Phosphatase 147 U/L (35-104) H Total Protein 6.2 g/dL (6.6-8.7) L Albumin 2.8 g/dL (3.5-5.2) L Globulin 3.4 g/dL Albumin/Globulin Ratio 0.8 (1.0-2.7) L Height (Feet): 4 Height (Inches): 7.00 Weight (Pounds): 123 General Appearance: no apparent distress, alert Cardiovascular: normal rate Respiratory/Chest: normal breath sounds, no respiratory distress Abdominal Exam: normal bowel sounds, non tender, soft Extremities: normal range of motion Nelly Mathew N.P. Oct 17, 2016 11:09
[2016-10-17 12:00] VITALS: BP 137/69
--- NOTE | 2016-10-17 12:31 | Consultation ---
Consult Note Consult Note ID # [id number] YUDI RAYMOND M.D. Oct 17, 2016 12:30
--- NOTE | 2016-10-17 15:47 | Pulmonology Progress Note ---
Assessment/Plan Problems: (1) Diverticulitis (2) Diabetes (3) HIV disease Subjective Allergies: Coded Allergies: ASPIRIN (Unverified Allergy, Unknown, Rash, 10/14/16) PENICILLINS (Unverified Allergy, Unknown, Rash, 10/14/16) Objective Last 24 Hour Vital Signs Date Time Temp Pulse Resp B/P Pulse Ox O2 Delivery O2 Flow Rate FiO2 10/17/16 12:00 97.7 66 18 137/69 99 Room Air 10/17/16 08:00 98.1 74 18 133/75 99 Room Air 10/17/16 04:00 97.9 76 18 111/64 98 Room Air 10/16/16 23:59 97.7 68 18 133/72 96 Room Air 10/16/16 19:52 97.7 67 18 147/84 99 Room Air 10/16/16 16:28 98.2 10/16/16 16:00 98.4 71 18 132/69 98 Room Air Intake and Output 10/16/16 10/17/16 18:59 06:59 Intake Total 2515 ml 1210 ml Balance 2515 ml 1210 ml Intake Oral 1500 ml 250 ml IV Total 1015 ml 960 ml # Voids 3 2 # Bowel Movements 3 Microbiology Date/Time Source Procedure Growth Status 10/15/16 01:50 Nasal Nares MRSA Culture - Final NO METHICILLIN RESISTANT STAPH AUREUS... Complete 10/15/16 01:50 Rectum VRE Culture - Final NO VANCOMYCIN RESISTANT ENTEROCOCCUS ... Complete Laboratory Tests 10/17/16 04:50: White Blood Count 3.9L, Red Blood Count 3.00L, Hemoglobin 10.0L, Hematocrit 28.6L, Mean Corpuscular Volume 95, Mean Corpuscular Hemoglobin 33.3H, Mean Corpuscular Hemoglobin Concent 34.9, Red Cell Distribution Width 14.3, Platelet Count 60L, Mean Platelet Volume 6.9, Neutrophils (%) (Auto) , Lymphocytes (%) ( Auto) , Monocytes (%) (Auto) , Eosinophils (%) (Auto) , Basophils (%) (Auto) , Differential Total Cells Counted 100, Neutrophils % (Manual) 61, Lymphocytes % ( Manual) 29, Monocytes % (Manual) 7, Eosinophils % (Manual) 3, Basophils % ( Manual) 0, Band Neutrophils 0, Platelet Estimate DecreasedL, Platelet Morphology Normal, Hypochromasia 1+, Anisocytosis 1+, Sodium Level 140, Potassium Level 3.5, Chloride Level 107, Carbon Dioxide Level 19L, Anion Gap 14 , Blood Urea Nitrogen 4L, Creatinine 1.0H, Estimat Glomerular Filtration Rate 56.8, Glucose Level 177H, Calcium Level 7.4L, Total Bilirubin 0.5, Aspartate Amino Transf (AST/SGOT) 42H, Alanine Aminotransferase (ALT/SGPT) 21, Alkaline Phosphatase 147H, Total Protein 6.2L, Albumin 2.8L, Globulin 3.4, Albumin/ Globulin Ratio 0.8L Current Medications Medications (Trade) Dose Ordered Sig/Josie Route PRN Reason Start Time Stop Time Status Last Admin Dose Admin Abacavir Sulfate (Ziagen) 300 mg TWICE A DAY ORAL 10/16/16 20:00 11/15/16 19:59 10/17/16 08:35 Acetaminophen 650 mg 650 mg Q6H PRN ORAL Mild Pain/Temp > 100.5 10/15/16 00:30 11/14/16 00:29 Acetaminophen/ Hydrocodone Bitart ([place] 5/325) 1 tab Q6H PRN ORAL For Pain 10/15/16 00:30 10/22/16 00:29 Cetylpyridinium Chloride (Cepacol) 1 lozenge Q4H PRN MATTEO sore throat 10/15/16 12:45 11/14/16 12:44 10/17/16 14:05 Ciprofloxacin (Cipro 400mg/ 200ml premix bag) 200 ml @ 200 mls/hr Q12HR IV 10/15/16 09:00 10/22/16 08:59 10/17/16 08:37 Dextrose (Dextrose 50%) STAT PRN IV Hypoglycemia 10/15/16 01:15 11/14/16 01:14 Dolutegravir Sodium (Tivicay) 50 mg DAILY ORAL 10/17/16 09:00 11/16/16 08:59 10/17/16 08:35 Famotidine (Pepcid I.v.) 20 mg Q12HR IVP 10/17/16 21:00 11/16/16 20:59 Insulin Aspart (NovoLOG) BEFORE MEALS AND HS SUBQ 10/15/16 06:30 11/14/16 06:29 10/17/16 12:17 Lamivudine (Epivir) 150 mg EVERY 12 HOURS ORAL 10/17/16 21:00 11/16/16 20:59 Lorazepam (Ativan) 1 mg HSPRN PRN ORAL Insomnia 10/16/16 18:45 10/23/16 18:44 10/16/16 22:55 Metronidazole 100 ml @ 100 mls/hr Q8HR IVPB 10/15/16 09:00 10/22/16 08:59 10/17/16 13:47 Morphine Sulfate 2 mg 2 mg Q4H PRN IVP Severe Pain (Pain Scale 7-10) 10/15/16 00:30 10/22/16 00:29 10/17/16 08:36 Olanzapine (ZyPREXA) 2.5 mg BEDTIME ORAL 10/15/16 21:00 11/14/16 20:59 10/16/16 22:55 Ondansetron HCl (Zofran) 4 mg Q4H PRN IVP Nausea & Vomiting 10/15/16 00:30 11/14/16 00:29 10/17/16 13:57 Sodium Chloride (NS w/KCl 20mEq) 1,000 ml @ 75 mls/hr [id number] IV 10/15/16 02:00 11/14/16 01:59 10/16/16 17:13 JOHN TUCKER Oct 17, 2016 15:47
[2016-10-17 16:00] VITALS: BP 142/77
--- NOTE | 2016-10-17 17:44 | Internal Med Progress Note ---
Subjective Date of Service: Oct 17, 2016 Physician Name Yi,Phil Attending Physician Nelson Zuniga MD Current Medications Medications (Trade) Dose Ordered Sig/Josie Route PRN Reason Start Time Stop Time Status Last Admin Dose Admin Abacavir Sulfate (Ziagen) 300 mg TWICE A DAY ORAL 10/16/16 20:00 11/15/16 19:59 10/17/16 08:35 Acetaminophen 650 mg 650 mg Q6H PRN ORAL Mild Pain/Temp > 100.5 10/15/16 00:30 11/14/16 00:29 Acetaminophen/ Hydrocodone Bitart ([place] 5/325) 1 tab Q6H PRN ORAL For Pain 10/15/16 00:30 10/22/16 00:29 Cetylpyridinium Chloride (Cepacol) 1 lozenge Q4H PRN MATTEO sore throat 10/15/16 12:45 11/14/16 12:44 10/17/16 14:05 Ciprofloxacin (Cipro 400mg/ 200ml premix bag) 200 ml @ 200 mls/hr Q12HR IV 10/15/16 09:00 10/22/16 08:59 10/17/16 08:37 Dextrose (Dextrose 50%) STAT PRN IV Hypoglycemia 10/15/16 01:15 11/14/16 01:14 Dolutegravir Sodium (Tivicay) 50 mg DAILY ORAL 10/17/16 09:00 11/16/16 08:59 10/17/16 08:35 Famotidine (Pepcid I.v.) 20 mg Q12HR IVP 10/17/16 21:00 11/16/16 20:59 Insulin Aspart (NovoLOG) BEFORE MEALS AND HS SUBQ 10/15/16 06:30 11/14/16 06:29 10/17/16 12:17 Lamivudine (Epivir) 150 mg EVERY 12 HOURS ORAL 10/17/16 21:00 11/16/16 20:59 Lorazepam (Ativan) 1 mg HSPRN PRN ORAL Insomnia 10/16/16 18:45 10/23/16 18:44 10/16/16 22:55 Metronidazole 100 ml @ 100 mls/hr Q8HR IVPB 10/15/16 09:00 10/22/16 08:59 10/17/16 13:47 Morphine Sulfate 2 mg 2 mg Q4H PRN IVP Severe Pain (Pain Scale 7-10) 10/15/16 00:30 10/22/16 00:29 10/17/16 08:36 Olanzapine (ZyPREXA) 2.5 mg BEDTIME ORAL 10/15/16 21:00 11/14/16 20:59 10/16/16 22:55 Ondansetron HCl (Zofran) 4 mg Q4H PRN IVP Nausea & Vomiting 10/15/16 00:30 11/14/16 00:29 10/17/16 13:57 Sodium Chloride (NS w/KCl 20mEq) 1,000 ml @ 75 mls/hr [id number] IV 10/15/16 02:00 11/14/16 01:59 10/16/16 17:13 Allergies: Coded Allergies: ASPIRIN (Unverified Allergy, Unknown, Rash, 10/14/16) PENICILLINS (Unverified Allergy, Unknown, Rash, 10/14/16) ROS Limited/Unobtainable: No Constitutional: Reports: no symptoms HEENT: Reports: no symptoms Cardiovascular: Reports: no symptoms Respiratory: Reports: no symptoms Gastrointestinal/Abdominal: Reports: abdomen distended, abdominal pain Genitourinary: Reports: no symptoms Neurologic/Psychiatric: Reports: no symptoms Subjective 61 YO F admitted with epigastric pain. Now diverticulitis. Cover for Int Med- Dr Zuniga. C/O abdominal pain 08/12 Objective Last Vital Signs Date Time Temp Pulse Resp B/P Pulse Ox O2 Delivery O2 Flow Rate FiO2 10/17/16 16:00 97.7 71 18 142/77 100 Room Air Laboratory Tests Test 10/17/16 04:50 White Blood Count 3.9 K/UL (4.8-10.8) L Red Blood Count 3.00 M/UL (4.20-5.40) L Hemoglobin 10.0 G/DL (12.0-16.0) L Hematocrit 28.6 % (37.0-47.0) L Mean Corpuscular Volume 95 FL (80-99) Mean Corpuscular Hemoglobin 33.3 PG (27.0-31.0) H Mean Corpuscular Hemoglobin Concent 34.9 G/DL (32.0-36.0) Red Cell Distribution Width 14.3 % (11.6-14.8) Platelet Count 60 K/UL (150-450) L Mean Platelet Volume 6.9 FL (6.5-10.1) Neutrophils (%) (Auto) % (45.0-75.0) Lymphocytes (%) (Auto) % (20.0-45.0) Monocytes (%) (Auto) % (1.0-10.0) Eosinophils (%) (Auto) % (0.0-3.0) Basophils (%) (Auto) % (0.0-2.0) Differential Total Cells Counted 100 Neutrophils % (Manual) 61 % (45-75) Lymphocytes % (Manual) 29 % (20-45) Monocytes % (Manual) 7 % (1-10) Eosinophils % (Manual) 3 % (0-3) Basophils % (Manual) 0 % (0-2) Band Neutrophils 0 % (0-8) Platelet Estimate Decreased L Platelet Morphology Normal Hypochromasia 1+ Anisocytosis 1+ Sodium Level 140 mEQ/L (135-145) Potassium Level 3.5 mEQ/L (3.4-4.9) Chloride Level 107 mEQ/L (98-107) Carbon Dioxide Level 19 mEQ/L (20-30) L Anion Gap 14 (5-15) Blood Urea Nitrogen 4 mg/dL (7-23) L Creatinine 1.0 mg/dL (0.5-0.9) H Estimat Glomerular Filtration Rate 56.8 mL/min (>60) Glucose Level 177 mg/dL (74-106) H Calcium Level 7.4 mg/dL (8.6-10.2) L Total Bilirubin 0.5 mg/dL (0.0-1.2) Aspartate Amino Transf (AST/SGOT) 42 U/L (5-40) H Alanine Aminotransferase (ALT/SGPT) 21 U/L (3-33) Alkaline Phosphatase 147 U/L (35-104) H Total Protein 6.2 g/dL (6.6-8.7) L Albumin 2.8 g/dL (3.5-5.2) L Globulin 3.4 g/dL Albumin/Globulin Ratio 0.8 (1.0-2.7) L Microbiology Date/Time Source Procedure Growth Status 10/15/16 01:50 Nasal Nares MRSA Culture - Final NO METHICILLIN RESISTANT STAPH AUREUS... Complete 10/15/16 01:50 Rectum VRE Culture - Final NO VANCOMYCIN RESISTANT ENTEROCOCCUS ... Complete Intake and Output 10/16/16 10/17/16 19:00 07:00 Intake Total 2575 ml 1250 ml Balance 2575 ml 1250 ml Intake Oral 1500 ml 250 ml IV Total 1075 ml 1000 ml # Voids 3 2 # Bowel Movements 3 Objective General Appearance: WD/WN, moderate distress EENT: PERRL/EOMI, normal ENT inspection, TMs normal Neck: non-tender, normal alignment, supple Cardiovascular: normal peripheral pulses, normal rate, regular rhythm, no gallop/murmur, no JVD Respiratory/Chest: chest wall non-tender, lungs clear, normal breath sounds, no respiratory distress, respiratory distress Abdomen: no organomegaly, no mass, decreased bowel sounds, distended, tender Extremities: normal range of motion Neurologic: operating engineer II-XII grossly normal, no motor/sensory deficits Skin: normal pigmentation, warm/dry Assessment/Plan Problem List: (1) Epigastric abdominal pain Assessment & Plan: Cont Morphine prn (2) HIV disease Assessment & Plan: Cont HAART (3) Diverticulitis Assessment & Plan: See GI consult. Advance diet to soft. Cont IV cipro and flagyl. (4) Diabetes mellitus, type II Assessment & Plan: Cont novolog sliding scale. (5) Colitis Assessment & Plan: See GI note. Will require colonoscopy as outpatient in 8 weeks. Status: progressing PHIL YI Oct 17, 2016 17:44
[2016-10-17 20:25] VITALS: BP 146/78
--- NOTE | 2016-10-17 21:00 | Consultation ---
DATE OF CONSULTATION: 10/17/2016 INFECTIOUS DISEASE CONSULTATION CONSULTING PHYSICIAN: Omi Ashby M.D REFERRING PHYSICIAN: Christopher Pierre M.D. REASON FOR CONSULTATION: Evaluation of the patient for HIV and diverticulitis, antibiotic management. HISTORY OF PRESENT ILLNESS: The patient is a 61-year-old female with multiple medical problems as listed below who was admitted to this medical center due to nausea, vomiting, and abdominal pain. Abdominal scan showed diverticulitis. The patient has been started on IV antibiotics. Infectious Disease consultation has been requested for further evaluation of the patient. PAST MEDICAL HISTORY: 1. History of HIV, diagnosed in 2004. According to her, her C4 in the range 450 and viral load undetectable. 2. History of diverticulosis in the past. 3. Diabetes. 4. History of renal insufficiency in the past according to her. PAST SURGICAL HISTORY: None. MEDICATIONS: Abacavir, Tivicay, and lamivudine. ALLERGIES: Penicillin and aspirin. SOCIAL HISTORY: No history of alcohol or drug abuse. REVIEW OF SYSTEMS: HEENT: No recent change in vision or hearing. Pulmonary: No cough. Cardiovascular: No chest pain or palpitation. Gastrointestinal/Abdomen: As mentioned above. Genitourinary: No dysuria. PHYSICAL EXAMINATION: VITAL SIGNS: Temperature is 97.7 degrees, blood pressure 137/57, pulse 66, and respiratory rate 18. HEENT: Mild pale conjunctivae. NECK: No lymphadenopathy. CHEST: Coarse breathing sounds. HEART: S1 and S2. ABDOMEN: Obese. Upon exam, she did not appear to have rebound tenderness; however, the patient did have mild tenderness in the lower abdomen. EXTREMITIES: No cyanosis. NEUROLOGIC: Awake. LABORATORY AND DIAGNOSTIC DATA: White blood cells 3.9, hemoglobin 10, and platelets 60,000. BUN 4 and creatinine 1.4. ALT and AST unremarkable. Alkaline phosphatase 147. CT scan of the abdomen shows chronic diverticulosis, sigmoid wall thickening, suggestive of acute diverticulitis. ASSESSMENT: The patient is a 61-year-old female with multiple medical problems as listed above, who has, 1. Sigmoid diverticulitis. 2. Nausea and vomiting, however, no diarrhea. PLAN: 1. We will continue the patient on Flagyl and Cipro for 10 days. Upon discharge and improvement, we will change this to oral. 2. Continue the patient on her HIV regimen (abacavir, lamivudine, and Tivicay). 3. Monitor CBC. 4. Monitor BMP. 5. Follow up for HIV care with upon discharge. Thank you, Dr. Pierre, for allowing me to participate in the care of this patient. I will follow the patient during this hospitalization. Omi Ashby M.D. DR: JARRED JOB#: [id number] CC:
[2016-10-17] MEDS: OLANZapine 2.5mg tab ORAL SCH (22:24)
[2016-10-17] MEDS: LORazepam 0.5mg tab ORAL PRN (22:24)
[2016-10-17] MEDS: Famotidine 20 MG/ 2ML VIAL IVP SCH (22:24)
[2016-10-18 00:21] VITALS: BP 142/75
[2016-10-18] MEDS: metroNIDAZOLE 500mg 100 ML IVPB SCH ×2 (00:51→06:26)
[2016-10-18 04:37] VITALS: BP 139/77
[2016-10-18] MEDS: NovoLOG Insulin Flexpen SUBQ SCH ×2 (06:34→12:08)
[2016-10-18 07:09] LABS: ALBUMIN/GLOBULIN RATIO 0.9 (1.0-2.7); CREATININE 1.1 mg/dL (0.5-0.9); GLOMERULAR FILTRATION RATE 50.8 mL/min (>60); MAGNESIUM 1.7 mg/dL (1.7-2.5); TOTAL PROTEIN 6.3 g/dL (6.6-8.7)
[2016-10-18 07:15] LABS: MEAN CORPUSCULAR HGB CONC 33.4 G/DL (32.0-36.0); MEAN CORPUSCULAR VOLUME 96 FL (80-99); MEAN PLATELET VOLUME 7.4 FL (6.5-10.1); PLATELET COUNT 65 K/UL (150-450); RED BLOOD COUNT 3.22 M/UL (4.20-5.40); RED CELL DISTRIBUTION WIDTH 14.2 % (11.6-14.8); WHITE BLOOD COUNT 4.6 K/UL (4.8-10.8)
[2016-10-18 07:28] VITALS: BP 136/80
[2016-10-18 08:13] LABS: BAND NEUTROPHILS % (MANUAL) 0 % (0-8); BASOPHILS % (MANUAL) 0 % (0-2); EOSINOPHILS % (MANUAL) 2 % (0-3); LYMPHOCYTES % (MANUAL) 31 % (20-45); NEUTROPHILS % (MANUAL) 61 % (45-75); PLATELET ESTIMATE DECREASED; PLATELET MORPHOLOGY NORMAL; TOTAL CELLS COUNTED 100
[2016-10-18 08:14] LABS: ANISOCYTOSIS 1+; HYPOCHROMASIA 1+
--- NOTE | 2016-10-18 08:37 | Pulmonology Progress Note ---
Assessment/Plan Assessment/Plan ASSESSMENT acute sigmoid diverticulitis abdominal pain 2 to diverticulitis DM HIV status possible liver cirrhosis pancytopenia PLAN OF CARE MS floor CT A/P with evidence of acute diverticulitis IVF abx ID follows, diet advance as tolerated as per GI, folwos monitor diet tolerance GI follows pain management H2 blockers stool OB outpatient colonoscopy in 8 weeks antiemetic prn peripheral blood smear review noted: no blasts, no PLT aggregation monitor counts continue ART therapy BS management with SS of insulin will need upon dc oral abx, diet low residue for 3-4 weeks, then high residue diet and colonoscopy in 8 weeks RN to provide diet for diverticular disease and stress low residue for 3-4 weeks , then regular high fiber , no seeds, no nuts case discussed and evaluated by supervising physician Subjective Allergies: Coded Allergies: ASPIRIN (Unverified Allergy, Unknown, Rash, 10/14/16) PENICILLINS (Unverified Allergy, Unknown, Rash, 10/14/16) Subjective tolerated breakfast, no nausea intermittent abdominal pain, controlled with current analgesics Objective Last 24 Hour Vital Signs Date Time Temp Pulse Resp B/P Pulse Ox O2 Delivery O2 Flow Rate FiO2 10/18/16 07:28 98.2 89 14 136/80 100 Room Air 10/18/16 04:37 97.2 82 17 139/77 100 Room Air 10/18/16 00:21 98.4 68 18 142/75 100 Room Air 10/17/16 20:25 98.2 70 20 146/78 100 Room Air 10/17/16 16:00 97.7 71 18 142/77 100 Room Air 10/17/16 12:00 97.7 66 18 137/69 99 Room Air Intake and Output 10/17/16 10/18/16 19:00 07:00 Intake Total 540 ml 870 ml Output Total 600 ml Balance -60 ml 870 ml Intake Oral 240 ml 120 ml IV Total 300 ml 750 ml Output Urine Total 600 ml # Voids 5 2 # Bowel Movements 3 General Appearance: WD/WN, no acute distress HEENT: normocephalic, atraumatic, anicteric, mucous membranes moist Respiratory/Chest: lungs clear, no respiratory distress, no accessory muscle use Cardiovascular: normal peripheral pulses, normal rate, regular rhythm Abdomen: normal bowel sounds, soft, non tender Neurologic/Psychiatric: no motor/sensory deficits, alert, oriented x 3, responsive Musculoskeletal: normal muscle bulk Laboratory Tests 10/18/16 05:20: White Blood Count 4.6L, Red Blood Count 3.22L, Hemoglobin 10.3L, Hematocrit 30.9L, Mean Corpuscular Volume 96, Mean Corpuscular Hemoglobin 32.0H, Mean Corpuscular Hemoglobin Concent 33.4, Red Cell Distribution Width 14.2, Platelet Count 65L, Mean Platelet Volume 7.4, Neutrophils (%) (Auto) , Lymphocytes (%) ( Auto) , Monocytes (%) (Auto) , Eosinophils (%) (Auto) , Basophils (%) (Auto) , Differential Total Cells Counted 100, Neutrophils % (Manual) 61, Lymphocytes % ( Manual) 31, Monocytes % (Manual) 6, Eosinophils % (Manual) 2, Basophils % ( Manual) 0, Band Neutrophils 0, Platelet Estimate DecreasedL, Platelet Morphology Normal, Hypochromasia 1+, Anisocytosis 1+, Sodium Level 140, Potassium Level 4.0, Chloride Level 105, Carbon Dioxide Level 21, Anion Gap 14, Blood Urea Nitrogen 5L, Creatinine 1.1H, Estimat Glomerular Filtration Rate 50.8 , Glucose Level 161H, Calcium Level 8.0L, Magnesium Level 1.7, Total Bilirubin 0.5, Aspartate Amino Transf (AST/SGOT) 46H, Alanine Aminotransferase (ALT/SGPT) 24, Alkaline Phosphatase 159H, Total Protein 6.3L, Albumin 3.1L, Globulin 3.2, Albumin/Globulin Ratio 0.9L Current Medications Medications (Trade) Dose Ordered Sig/Josie Route PRN Reason Start Time Stop Time Status Last Admin Dose Admin Abacavir Sulfate (Ziagen) 300 mg TWICE A DAY ORAL 10/16/16 20:00 11/15/16 19:59 10/17/16 17:35 Acetaminophen 650 mg 650 mg Q6H PRN ORAL Mild Pain/Temp > 100.5 10/15/16 00:30 11/14/16 00:29 Acetaminophen/ Hydrocodone Bitart ([place] 5/325) 1 tab Q6H PRN ORAL For Pain 10/15/16 00:30 10/22/16 00:29 Cetylpyridinium Chloride (Cepacol) 1 lozenge Q4H PRN MATTEO sore throat 10/15/16 12:45 11/14/16 12:44 10/17/16 14:05 Ciprofloxacin (Cipro 400mg/ 200ml premix bag) 200 ml @ 200 mls/hr Q12HR IV 10/15/16 09:00 10/22/16 08:59 10/17/16 22:23 Dextrose (Dextrose 50%) STAT PRN IV Hypoglycemia 10/15/16 01:15 11/14/16 01:14 Dolutegravir Sodium (Tivicay) 50 mg DAILY ORAL 10/17/16 09:00 11/16/16 08:59 10/17/16 08:35 Famotidine (Pepcid I.v.) 20 mg Q12HR IVP 10/17/16 21:00 11/16/16 20:59 10/17/16 22:24 Insulin Aspart (NovoLOG) BEFORE MEALS AND HS SUBQ 10/15/16 06:30 11/14/16 06:29 10/18/16 06:34 Lamivudine (Epivir) 150 mg EVERY 12 HOURS ORAL 10/17/16 21:00 11/16/16 20:59 10/17/16 21:23 Lorazepam (Ativan) 1 mg HSPRN PRN ORAL Insomnia 10/16/16 18:45 10/23/16 18:44 10/17/16 22:24 Metronidazole 100 ml @ 100 mls/hr Q8HR IVPB 10/15/16 09:00 10/22/16 08:59 10/18/16 06:26 Morphine Sulfate 2 mg 2 mg Q4H PRN IVP Severe Pain (Pain Scale 7-10) 10/15/16 00:30 10/22/16 00:29 10/17/16 08:36 Olanzapine (ZyPREXA) 2.5 mg BEDTIME ORAL 10/15/16 21:00 11/14/16 20:59 10/17/16 22:24 Ondansetron HCl (Zofran) 4 mg Q4H PRN IVP Nausea & Vomiting 10/15/16 00:30 11/14/16 00:29 10/18/16 07:25 Sodium Chloride (NS w/KCl 20mEq) 1,000 ml @ 75 mls/hr [id number] IV 10/15/16 02:00 11/14/16 01:59 10/17/16 22:23 Gail Kinney NP ([place]) Oct 18, 2016 08:37
[2016-10-18] MEDS: Dolutegravir Sodium 50mg tab ORAL SCH (09:17)
[2016-10-18] MEDS: Famotidine 20 MG/ 2ML VIAL IVP SCH (09:17)
--- NOTE | 2016-10-18 10:38 | GI Progress Note ---
Assessment/Plan Problems: (1) Diverticulitis ICD Codes: K57.92 - Diverticulitis of intestine, part unspecified, without perforation or abscess without bleeding SNOMED: 908565599 (2) Diabetes ICD Codes: E11.9 - Type 2 diabetes mellitus without complications SNOMED: 16836089 (3) Abdominal pain ICD Codes: R10.9 - Unspecified abdominal pain SNOMED: 67089847 (4) Epigastric abdominal pain ICD Codes: R10.13 - Epigastric pain SNOMED: 01335910 (5) Diabetes mellitus, type II ICD Codes: E11.9 - Type 2 diabetes mellitus without complications SNOMED: 61067250 Status: doing well, stable Status Narrative Discussed with Dr. Sunshine. Assessment/Plan APCT reviewed, see full report. ok for DC per GI standpoint IVF hydration + electrolyte replacement dc iron soft diet today pain mgmt abx >> transition to PO for 10-14 days when discharged ppi Cepacol prn pt will require outpatient colonoscopy 8 weeks after discharge date Subjective Subjective soft diet, tolerating abdominal pain greatly improved Objective Last 24 Hour Vital Signs Date Time Temp Pulse Resp B/P Pulse Ox O2 Delivery O2 Flow Rate FiO2 10/18/16 07:28 98.2 89 14 136/80 100 Room Air 10/18/16 04:37 97.2 82 17 139/77 100 Room Air 10/18/16 00:21 98.4 68 18 142/75 100 Room Air 10/17/16 20:25 98.2 70 20 146/78 100 Room Air 10/17/16 16:00 97.7 71 18 142/77 100 Room Air 10/17/16 12:00 97.7 66 18 137/69 99 Room Air Intake and Output 10/17/16 10/18/16 19:00 07:00 Intake Total 540 ml 870 ml Output Total 600 ml Balance -60 ml 870 ml Intake Oral 240 ml 120 ml IV Total 300 ml 750 ml Output Urine Total 600 ml # Voids 5 2 # Bowel Movements 3 Laboratory Tests Test 10/18/16 05:20 White Blood Count 4.6 K/UL (4.8-10.8) L Red Blood Count 3.22 M/UL (4.20-5.40) L Hemoglobin 10.3 G/DL (12.0-16.0) L Hematocrit 30.9 % (37.0-47.0) L Mean Corpuscular Volume 96 FL (80-99) Mean Corpuscular Hemoglobin 32.0 PG (27.0-31.0) H Mean Corpuscular Hemoglobin Concent 33.4 G/DL (32.0-36.0) Red Cell Distribution Width 14.2 % (11.6-14.8) Platelet Count 65 K/UL (150-450) L Mean Platelet Volume 7.4 FL (6.5-10.1) Neutrophils (%) (Auto) % (45.0-75.0) Lymphocytes (%) (Auto) % (20.0-45.0) Monocytes (%) (Auto) % (1.0-10.0) Eosinophils (%) (Auto) % (0.0-3.0) Basophils (%) (Auto) % (0.0-2.0) Differential Total Cells Counted 100 Neutrophils % (Manual) 61 % (45-75) Lymphocytes % (Manual) 31 % (20-45) Monocytes % (Manual) 6 % (1-10) Eosinophils % (Manual) 2 % (0-3) Basophils % (Manual) 0 % (0-2) Band Neutrophils 0 % (0-8) Platelet Estimate Decreased L Platelet Morphology Normal Hypochromasia 1+ Anisocytosis 1+ Sodium Level 140 mEQ/L (135-145) Potassium Level 4.0 mEQ/L (3.4-4.9) Chloride Level 105 mEQ/L (98-107) Carbon Dioxide Level 21 mEQ/L (20-30) Anion Gap 14 (5-15) Blood Urea Nitrogen 5 mg/dL (7-23) L Creatinine 1.1 mg/dL (0.5-0.9) H Estimat Glomerular Filtration Rate 50.8 mL/min (>60) Glucose Level 161 mg/dL (74-106) H Calcium Level 8.0 mg/dL (8.6-10.2) L Magnesium Level 1.7 mg/dL (1.7-2.5) Total Bilirubin 0.5 mg/dL (0.0-1.2) Aspartate Amino Transf (AST/SGOT) 46 U/L (5-40) H Alanine Aminotransferase (ALT/SGPT) 24 U/L (3-33) Alkaline Phosphatase 159 U/L (35-104) H Total Protein 6.3 g/dL (6.6-8.7) L Albumin 3.1 g/dL (3.5-5.2) L Globulin 3.2 g/dL Albumin/Globulin Ratio 0.9 (1.0-2.7) L Height (Feet): 4 Height (Inches): 7.00 Weight (Pounds): 123 General Appearance: no apparent distress, alert Cardiovascular: normal rate Respiratory/Chest: normal breath sounds, no respiratory distress Abdominal Exam: normal bowel sounds, non tender, soft Extremities: normal range of motion Nelly Mathew N.P. Oct 18, 2016 10:38
[2016-10-18] MEDS: NS w/KCl 20mEq 1,000 ML IV SCH (11:38)
[2016-10-18] MEDS ORDERED: CIPRO500 MG PO (12:02)
[2016-10-18] MEDS ORDERED: METRONIDAZOLE500 MG ORAL (12:03)
[2016-10-18 12:49] VITALS: BP 128/78
[2016-10-18 12:54] VITALS: BP 131/77
[2016-10-18] MEDS ORDERED: Tubing IV Secondary IV ONE (15:27)
[2016-10-18] MEDS ORDERED: NS 275ml ONE (15:27)
--- NOTE | 2016-10-21 11:00 | Discharge Summary ---
Discharge Summary Hospital Course Date of Admission Oct 14, 2016 at 21:03 Date of Discharge Oct 18, 2016 at 15:28 Admitting Diagnosis HPI Pushpa Valencia is a 61 year old female who was admitted on Oct 14, 2016 at 21:03 for Abdominal Pain Hospital Course dc summary #[id number] Discharge Medications Continued Medications: Abacavir Sulfate* (Abacavir*) 300 Mg Tablet 300 MG ORAL TWICE A DAY PRN for HIV, TAB Ciprofloxacin* (Cipro*) 500 Mg Tablet 500 MG PO BID for 10 Days, #14 TAB Docusate Sodium* (Colace*) 100 Mg Capsule 100 MG ORAL TWICE A DAY for Constipation, CAP Dolutegravir Sodium (Tivicay) 50 Mg Tablet 50 MG ORAL DAILY for HIV, TAB Ferrous Sulfate* (Ferrous Sulfate*) 325 Mg Tablet 325 MG ORAL DAILY for anemia, #30 TAB 0 Refills Metronidazole* (Flagyl*) 500 Mg Tablet 500 MG ORAL THREE TIMES A DAY for 10 Days, #21 TAB 0 Refills Olanzapine* (Zyprexa*) 2.5 Mg Tablet 2.5 MG ORAL BEDTIME for depression, #30 TAB 0 Refills Sitagliptin (Januvia) 50 Mg Tablet 50 MG ORAL DAILY for Hyperglycemia, TAB Discharge Condition Upon Discharge: stable Discharge Disposition Patient was discharged to Home with Home Health(06) Discharge Diagnoses: Nirmal (Candelaria)Gail NP Oct 21, 2016 11:00
--- NOTE | 2016-10-22 02:30 | Discharge Summary 2 SIG ---
DATE OF ADMISSION: 10/14/2016 DATE OF DISCHARGE: 10/18/2016 REASON FOR ADMISSION: 61-year-old female with a history of HIV and diabetes, presented to [facility] with chief complaint of abdominal pain. CT of the abdomen and pelvis revealed acute diverticulitis. The patient was transferred to [facility] for further management. ADMITTING DIAGNOSES: 1. Acute diverticulitis. 2. Human immunodeficiency virus disease. 3. Diabetes. HOSPITAL STAY: The patient admitted. The patient initially kept NPO, started on IV fluids and IV antibiotics. CT of the abdomen and pelvis was requested. Gastrointestinal consult was requested. CT of the abdomen and pelvis revealed evidence of fatty liver, questionable hepatic surface nodularity possibly indicated of early cirrhotic changes. Sigmoidal thickening with the finding most likely representing acute diverticulitis. The patient was afebrile. No leukocytosis. ID doctor followed along with GI specialist. Per ID recommendations, the patient ] needs 10 days of Cipro and Levaquin, and continue with ART therapy for HIV. The patient started on clear liquid diet and slowly progressed to low residue diet. Patient was able to tolerate diet. Antiemetic provided as needed, but no vomiting and no nausea. Electrolytes were replaced as needed. The patient started on PPI. Pain management was provided. GI cleared the patient for discharge and recommended outpatient colonoscopy in two months. The patient was counseled to have a low-residue diet for additional three to four weeks until all symptoms resolved and then back to regular diet with high fiber. Avoid nuts and seeds. Nursing provided patient with detailed written instruction on diet for diverticular disease. Blood sugar was managed with sliding scale of insulin. Peripheral blood smear reviewed; no blasts, no platelets and no aggregation noted. Monitor counts. Pancytopenia, possibly due to human immunodeficiency virus disease. Follow up as outpatient with HIV specialist. LFT were stable. The patient was discharged home with home health services. DISCHARGE DIAGNOSES: 1. Acute sigmoid diverticulitis. 2. Abdominal pain secondary to diverticulitis. 3. Diabetes mellitus. 4. Human immunodeficiency virus status. 5. Possible liver cirrhosis. 6. Pancytopenia. DISCHARGE MEDICATIONS: See medication reconciliation list. DISCHARGE INSTRUCTIONS: The patient discharged home with home health services. Follow up with GI in eight weeks for colonoscopy. Follow up with the primary medical doctor. Follow up with HIV specialist. Nelson Zuniga M.D. Gail BejaranoHarvinder ken DR: ALMA JOB#: [id number] CC: GLENN
== END 2016-10-18 15:28 | disposition home health service (06) | DRG 391 ==
LOC: 4E 21:03
DX: K57.32 Diverticulitis of large intestine without perforation or abscess without bleeding (principal); B20 Human immunodeficiency virus [HIV] disease; D61.818 Other pancytopenia; E11.9 Type 2 diabetes mellitus without complications; K74.60 Unspecified cirrhosis of liver; Z88.6 Allergy status to analgesic agent; Z88.0 Allergy status to penicillin; E88.09 Other disorders of plasma-protein metabolism, not elsewhere classified
CPT/HCPCS: 36415; 74177; 80053; 82270; 82378; 82607; 82746; 82962; 83540; 83550; 83615; 83735; 84100; 85007; 85025; 85044; 85060; 85610; 85651; 85730; 87081; J1815; J2405